=== PATIENT | female | born 1950 | race Caucasian/White ===

== ENCOUNTER 2017-11-06 10:05 | Emergency (ER) | payer OTHER ==
[~2017-11-06] VITALS: Ht 157.5 cm; Wt 62.1 kg
[2017-11-06 10:28] VITALS: BP 161/66
--- NOTE | 2017-11-06 10:54 | RAD ---
3 view left fourth finger History: SMASHED LEFT 4TH DIGIT IN DOOR THIS MORNING . Comparison: None are available Comminuted crush fracture of the terminal tuft of the distal phalanx of the fourth finger with mild displacement and splaying of the fragments. Soft tissue defect also noted. No dislocation. IMPRESSION: Crush fracture of the terminal tuft of the fourth distal phalanx with associated soft tissue injury. Electronically signed by: Roberto Monroe MD (11/06/2017 10:51 AM) [id number]
[2017-11-06] MEDS ORDERED: BUPIVACAINE PF 0.75% 10 ML VIAL ONE (11:04)
[2017-11-06] MEDS ORDERED: AMOXICILLIN/K CLAV 875/125MG TABLET. PO ONE (11:30)
[2017-11-06] MEDS ORDERED: BUPIVACAINE MPF 0.25% 10 ML VIAL. IJ ONE (11:30)
[2017-11-06] MEDS ORDERED: AMOX1TAB61 PO (11:59)
--- NOTE | 2017-11-06 12:00 | PHYS DOC ---
Past History Past Medical History: High Cholesterol Alcohol Use: Rarely Drug Use: None Adult General Chief Complaint Chief Complaint: FINGER INJURY HPI HPI Patient is a 67 year old F who presents with finger laceration. Candelaria states that she slammed her finger in the door just prior to arrival. She describes [id number] dull constant pain is worse with movement and improved with positioning. She has no other associated symptoms. She has no other exacerbating or relieving factors. Review of Systems Review of Systems Constitutional: Denies fever or chills [] Eyes: Denies change in visual acuity, redness, or eye pain [] HENT: Denies nasal congestion or sore throat [] Respiratory: Denies cough or shortness of breath [] Cardiovascular: No additional information not addressed in HPI [] GI: Denies abdominal pain, nausea, vomiting, bloody stools or diarrhea [] : Denies dysuria or hematuria [] Musculoskeletal: Denies back pain or joint pain [] Integument: Denies rash Neurologic: Denies headache, focal weakness or sensory changes [] Endocrine: Denies polyuria or polydipsia [] All other systems were reviewed and found to be within normal limits, except as documented in this note. Family History Family History No pertinent family medical history was reported Current Medications Current Medications Current Medications Medications (Trade) Dose Ordered Sig/Acacia Start Time Stop Time Status Last Admin Dose Admin Amoxicillin/ Clavulanate Potassium (Augmentin 875/ 125mg) 1 tab 1X ONCE 11/06/17 11:30 11/06/17 11:31 DC Bupivacaine HCl (Sensorcaine Pf 0.75%) 10 ml STK-MED ONCE 11/06/17 11:04 11/06/17 11:05 DC Bupivacaine HCl (Sensorcaine-Mpf 0.25%) 10 ml 1X ONCE 11/06/17 11:30 11/06/17 11:31 DC Allergies Allergies Allergies Coded Allergies Type Severity Reaction Last Updated Verified oxycodone Allergy Intermediate 11/06/17 Yes Physical Exam Physical Exam Constitutional: Well developed, well nourished, no acute distress, non-toxic appearance. [] HENT: Normocephalic, atraumatic, Eyes: PERRLA, EOMI, conjunctiva normal, no discharge. [] Neck: Normal range of motion, no tenderness, supple, no stridor. [] Cardiovascular:Heart rate regular rhythm, no murmur [] Lungs & Thorax: Bilateral breath sounds clear to auscultation [] Abdomen: Bowel sounds normal, soft, no tenderness, no masses, no pulsatile masses. [] Skin: Warm, dry, no erythema, no rash. [] Left fourth finger tip avulsion Extremities: no cyanosis, no clubbing, ROM intact, no edema. [] Neurologic: Alert and oriented X 3, normal motor function, normal sensory function, no focal deficits noted. [] Psychologic: Affect normal, judgement normal, mood normal. [] Current Patient Data Vital Signs Vital Signs Date Time Temp Pulse Resp B/P (MAP) Pulse Ox O2 Delivery O2 Flow Rate FiO2 11/06/17 10:28 98.5 74 20 98 Room Air EKG EKG [] Radiology/Procedures Radiology/Procedures Indication: Partial fingertip avulsion Procedure: The patient was placed in the appropriate position and a digital block of the left fourth finger was done. The area was then cleaned. The laceration was closed using 4-0 Ethilon. 4 sutures were used. The wound area was then dressed with nonstick dressing and an aluminum splint Total repaired wound length: 3 cm. The patient tolerated the procedure well. Complications: None. Course & Med Decision Making Course & Med Decision Making Pertinent Labs and Imaging studies reviewed. (See chart for details) [] Dragon Disclaimer Dragon Disclaimer This electronic medical record was generated, in whole or in part, using a voice recognition dictation system. Departure Departure: Impression: Primary Impression: Fracture, finger, open Disposition: 01 HOME, SELF-CARE Condition: STABLE Patient Instructions: Finger Fracture, [id number] Additional Instructions: Candelaria was seen in the ED for a finger injury. No emergency medical condition was found on history or physical exam. She was found to have an xray that showed a fracture. She was started on an antibiotic to prevent infection. Her tetanus was up-to-date prior to arrival. Her wound was cleaned and repaired. She was encouraged to follow-up with her primary care doctor in the next 3-5 days for further management. Scripts Amoxicillin/Potassium Clav (AUGMENTIN 875-125 TABLET) 1 Each Tablet 1 TAB PO BID for 5 Days, #10 TAB Prov: FRANKLIN ALBERTO MD 11/06/17 Problem Qualifiers Primary Impression: Fracture, finger, open Encounter type: initial encounter Finger: middle finger Phalanx: distal Fracture alignment: displaced Laterality: left Qualified Codes: S62.633B - Displaced fracture of distal phalanx of left middle finger, initial encounter for open fracture FRANKLIN ALBERTO MD Nov 06, 2017 12:00
[2017-11-06] MEDS ORDERED: BUPIVACAINE PF 0.75% 10 ML VIAL IJ ONE (12:30)
== END 2017-11-06 12:10 | disposition home or self-care (01) ==
LOC: ER 10:05
DX: S62.637A Displaced fracture of distal phalanx of left little finger, initial encounter for closed fracture (principal); W23.0XXA Caught, crushed, jammed, or pinched between moving objects, initial encounter; Y93.89 Activity, other specified; Y92.89 Other specified places as the place of occurrence of the external cause; Y99.8 Other external cause status; E78.00 Pure hypercholesterolemia, unspecified; Z88.5 Allergy status to narcotic agent
CPT/HCPCS: 29130; 73140; 99284; J3490; 12002

== ENCOUNTER → 2021-09-03 | Outpatient (CLI) | payer MEDICARE ==
[~2021-09-03] MED LIST: AMOX1TAB61 PO
== END ==
LOC: LAB 09:44
PROVIDERS: ATTEND Internal Medicine
DX: R19.7 Diarrhea, unspecified (principal)
CPT/HCPCS: 87177; 87209; 87493; 87505